=== PATIENT | male | born 1990 | race Caucasian/White ===

== ENCOUNTER 2019-10-27 09:27 | Emergency (ER) | payer SELFPAY ==
[~2019-10-27] VITALS: Ht 175.3 cm; Wt 72.6 kg
[2019-10-27 09:30] VITALS: BP 142/67
--- NOTE | 2019-10-27 10:19 | PHYS DOC ---
Adult General Chief Complaint Chief Complaint: MEDICATION REFILL [facility] HPI Patient is a 28 year old male who presents with multiple complaints. The patient states that over the last several months that he has been decreasing his dose of Depakote. The patient is concerned that he has done this. He denies h aving a seizure. He also states that he is a heavy drinker. The patient states that he drinks nightly and has been doing this for last 10 years. He states that he woke up this morning and was feeling a little bit shaky, nauseous, has a cough, runny nose, has been feeling hot and cold. States he does see a primary care doctor at [facility]. Review of Systems Review of Systems Constitutional: Reports feeling hot and cold. Eyes: Denies change in visual acuity, redness, or eye pain [] HENT: Reports runny nose, nasal congestion and denies sore throat [] Respiratory: Reports cough but denies shortness of breath [] Cardiovascular: No additional information not addressed in HPI [] GI: Reports nausea, Denies abdominal pain, vomiting, bloody stools or diarrhea [] : Denies dysuria or hematuria [] Musculoskeletal: Denies back pain or joint pain [] Integument: Denies rash or skin lesions [] Neurologic: Denies headache, focal weakness or sensory changes [] Endocrine: Denies polyuria or polydipsia [] Complete systems were reviewed and found to be within normal limits, except as documented in this note. Physical Exam Physical Exam Constitutional: Well developed, well nourished, no acute distress, non-toxic appearance. [] HENT: Normocephalic, atraumatic, bilateral external ears normal, oropharynx moist, no oral exudates, nose normal. [] Eyes: PERRLA, EOMI, conjunctiva normal, no discharge. [] Neck: Normal range of motion, no tenderness, supple, no stridor. [] Cardiovascular:Heart rate regular rhythm, no murmur [] Lungs & Thorax: Bilateral breath sounds clear to auscultation [] Skin: Warm, dry, no erythema, no rash. [] Neurologic: Alert and oriented X 3, normal motor function, normal sensory function, no focal deficits noted. [] Psychologic: Affect normal, judgement normal, mood normal. [] EKG EKG [] Radiology/Procedures Radiology/Procedures [] Course & Med Decision Making Course & Med Decision Making Pertinent Labs and Imaging studies reviewed. (See chart for details) I had a long discussion with the patient about his health. I discussed with the patient that I do not recommend us adjusting seizure medications in the ER as we are unable to perform follow up. He has an established primary care provider at [facility] [place] [facility]. I recommended that he discuss this with them. I also discussed with patient his alcoholism. I discussed that his symptoms appear to be related to a virus with the timing and symptoms. I did discuss with him that I believe it would be good if he was to get some outpatient resources to help him quit. Nursing gave him outpatient resources. The patient appears to have a virus clinically. Discussed with patient the importance of drinking plenty of fluids. I also discussed the importance of r est. It was discussed with the patient that he is contagious and to stay away from others until it has been a week since the start of her symptoms. Discussed with the patient that she can take Zyrtec per label instructions for runny nose. Also discussed the proper control of fever by rotating Tylenol and Ibuprofen at home. A medical screening exam was performed on this patient and the patient does not appear to be having a medical emergency. His symptoms are not of sufficient severity and within reasonable medical probability it is unlikely the absence of immediate medical attention would result in placing the health of the indivi dual (or, with respect to a woman, the health of the woman or her unborn child) in serious jeopardy, serious impairment to bodily functions, or serious dysfunction of any bodily organ or part. Dragon Disclaimer Dragon Disclaimer This electronic medical record was generated, in whole or in part, using a voice recognition dictation system. Departure Departure Impression: Primary Impression: Encounter for medical screening examination Additional Impression: Viral syndrome Disposition: HOME, SELF-CARE Condition: STABLE Referrals: NO PCP (PCP) Patient Instructions: Viral Syndrome Additional Instructions: Thank you for visiting [facility]. We appreciate you trusting us with your care. If any additional problems come up don't hesitate to return to visit us. Please follow up with your primary care provider so they can plan additional care if needed and know about the problem that you had. If symptoms worsen come back to the Emergency Department. Any concerning symptoms that start such as chest pain, shortness of air, weakness or numbness on one side of the body, running high fevers or any other concerning symptoms return to the ER. Please fill your medications at any pharmacy and follow the prescription instructions. Please drink plenty of fluids. If unable to keep fluids down please return to ER. Please get Tylenol and Ibuprofen over the counter. Give each medication every 6 hours as directed by the medication labels. In order to utilize the peak of the medications stagger the medications to where the child is getting one of the medications every 3 hours. For example if you give Ibuprofen at 3 PM, you then give Tylenol at 6 PM and Ibuprofen again at 9 PM, and then Tylenol at midnight. Please get Zyrtec over the counter and take per label instructions for runny nose. Problem Qualifiers RICK HARRIS APRN Oct 27, 2019 10:19
== END 2019-10-27 10:12 | disposition home or self-care (01) ==
LOC: ER 09:27
DX: B34.9 Viral infection, unspecified (principal); R09.89 Other specified symptoms and signs involving the circulatory and respiratory systems; R05 Cough; R11.0 Nausea; R68.83 Chills (without fever); F10.10 Alcohol abuse, uncomplicated
CPT/HCPCS: 99281